=== PATIENT | female | born 1965 | race Caucasian/White ===

== ENCOUNTER 2018-10-19 05:38 | Day surgery (SDC) | payer OTHER ==
[~2018-10-19] VITALS: Ht 160 cm; Wt 76.2 kg
[~2018-10-19 05:38] MED LIST: DEXILANT60 MG ORAL
[2018-10-19 06:35] VITALS: BP 104/54
--- NOTE | 2018-10-19 06:54 | Anethesia Preoperative Eval ---
Anesthesia Pre-op PMH/ROS General Date of Evaluation: Oct 19, 2018 Time of Evaluation: 06:45 Anesthesiologist: Piedad Tarango CRNA ASA Score: ASA 2 Mallampati Score Class I : Soft palate, uvula, fauces, pillars visible Class II: Soft palate, uvula, fauces visible Class III: Soft palate, base of uvula visible Class IV: Only hard plate visible Mallampati Classification: Class II Surgeon: Caty Diagnosis: GERD Surgical Procedure: EGD Diagnostic/colon screening Anesthesia History: none Family History: no anesthesia problems Allergies: Coded Allergies: No Known Allergies (Unverified , 03/22/13) Medications: see eMAR Patient NPO?: Yes Past Medical History Cardiovascular: Denies: HTN, CAD, MS, valve dz, arrhythmia, other Pulmonary: Denies: asthma, COPD, ALLY, other Gastrointestinal/Genitourinary: Reports: GERD; Denies: CRI, ESRD, other Neurologic/Psychiatric: Denies: dementia, CVA, depression/anxiety, TIA, other Endocrine: Denies: DM, hypothyroidism, steroids, other HEENT: Denies: cataract (L), cataract (R), glaucoma, [place] (L[place] (R), other Hematology/Immune: Reports: anemia; Denies: DVT, bleeding disorder, other Musculoskeletal/Integumentary: Reports: OA, other - Cervical neck pain; RIGHT knee pain; Denies: RA, DJD, DDD, edema PMH Narrative: as noted above PSxH Narrative: Hypsterectomy, appendectomy Anesthesia Pre-op Phys. Exam Physician Exam Last Vital Signs Date Time Temp Pulse Resp B/P (MAP) Pulse Ox O2 Delivery O2 Flow Rate FiO2 10/19/18 06:41 Room Air 10/19/18 06:35 97.7 65 18 104/54 97 Constitutional: NAD Neurologic: CN 2-12 intact Cardiovascular: RRR Respiratory: CTA Gastrointestinal: S/NT/ND Airway Exam Mallampati Score: Class II Neck: (+) neck pain/ limited ROM TMD: > 3 FB ROM: full Teeth: intact Dentures: no upper, no lower Anesthesia Pre-op A/P Risk Assessment & Plan Assessment: ASA 2, OK to proceed Plan: MAC Status Change Before Surgery: No Pre-Antibiotics Given Within 1 Hr of Incision: Piedad Rangel CRNA Oct 19, 2018 06:54
--- NOTE | 2018-10-19 06:56 | Immediate Post-Op Evaluation ---
Immediate Post-Op Evalulation Immediate Post-Op Evalulation Procedure: EGD and colonoscopy Date of Evaluation: Oct 19, 2018 Time of Evaluation: 07:32 IV Fluids: 0.9 NS 500 ml Blood Pressure Systolic: 122 Blood Pressure Diastolic: 62 Pulse Rate: 60 Respiratory Rate: 22 O2 Sat by Pulse Oximetry: 100 Temperature (Fahrenheit): 97.0 Pain Score (1-10): 0 Nausea: No Vomiting: No Complications none Patient Status: awake, reacts Hydration Status: adequate Given Within 1 Hr of Incision: Piedad Rangel CRNA Oct 19, 2018 06:56
--- NOTE | 2018-10-19 06:57 | Pre-Procedure Note/Attestation ---
Pre-Procedure Note/Attestation Complete Prior to Procedure Planned Procedure: not applicable Procedure Narrative: esophagogastroduodenoscopy and colonoscopy Indications for Procedure Pre-Operative Diagnosis: colon polyps, GERD Attestation I attest that I discussed the nature of the procedure; its benefits; risks and complications; and alternatives (and the risks and benefits of such alternatives ), prior to the procedure, with the patient (or the patient's legal home furnishings sales representative). I attest that, if there was a reasonable possibility of needing a blood transfusion, the patient (or the patient's legal home furnishings sales representative) was given the [facility] standardized written summary, pursuant to the Gustavo Marjan Blood Safety Act ([place] Health and Safety Code # 1645, as amended). I attest that I re-evaluated the patient just prior to the surgery and that there has been no change in the patient's H&P, except as documented below: Qamar Byrne MD Oct 19, 2018 06:57
--- NOTE | 2018-10-19 06:58 | Short Stay Surgery H&P ---
History of Present Illness History of Present Illness Chief Complaint GERD, screening colon, h/o colon polyps HPI Funmi Gutierrez is a 53 year old female who was admitted on for Gerd, Colon Screening Patient History Allergies: Coded Allergies: No Known Allergies (Unverified , 03/22/13) PAST MEDICAL HISTORY: (1) Rectal polyp (2) Anemia Medication History Scheduled Dexlansoprazole (Dexilant), 60 MG ORAL DAILY, (Reported) Review of Systems Cardiovascular: Reports: no symptoms Respiratory: Reports: no symptoms Skeletal: Reports: no symptoms Gastrointestinal: Reports: gastro esophageal reflux disease Genitourinary: Reports: no symptoms Neurologic: Reports: no symptoms Endocrine: Reports: no symptoms Hematologic: Reports: anemia Physical Exam Vital Signs Last Vital Signs Date Time Temp Pulse Resp B/P (MAP) Pulse Ox O2 Delivery O2 Flow Rate FiO2 10/19/18 06:41 Room Air 10/19/18 06:35 97.7 65 18 104/54 97 Skin: normal HENT: normal Heart: normal Lungs: normal Abdomen: normal Extremities: normal Plan Plan of Care esophagogastroduodenoscopy and colonoscopy Attestation Are the patient's medical conditions optimized for surgery? Attestation Response: yes Qamar Byrne MD Oct 19, 2018 06:58
[2018-10-19] MEDS ORDERED: Lidocaine 1% MPF 10mg/ml 5ml ONE (07:00)
[2018-10-19] MEDS ORDERED: Propofol 200mg/20ml IV ONE (07:00)
--- NOTE | 2018-10-19 07:30 | Endoscopy Procedure Note ---
Endoscopy Procedure Note General Indication for Procedure: colon polyps, GERD Procedures Performed: EGD, colonoscopy Operative Findings/Diagnosis: gastritis, hemorrhoids Specimen: yes Pt Tolerated Procedure Well: Yes Estimated Blood Loss: none Anesthesia Anesthesiologist: melissa Anesthesia: MAC Inserted Devices Implant(s) used?: No Quality Quality of Bowel Preparation: Excellent Did scope reach the cecum?: Yes Was there any complications?: No GI Core Measures 50 yrs or older w/o bx or poly: No 10yrs. F/U not recommended: Yes If not recommended, why?: Above average risk 10 yrs. F/U needed: Yes 18 years or older w/prev. colo: Yes <3yrs. since last colonoscopy: No Qamar Byrne MD Oct 19, 2018 07:30
[2018-10-19 07:32] VITALS: BP 122/62
[2018-10-19 07:37] VITALS: BP 118/71
[2018-10-19 07:42] VITALS: BP 114/69
[2018-10-19 07:47] VITALS: BP 115/69
--- NOTE | 2018-10-19 07:56 | 48 Hour Post Anesthesia Eval ---
Post Anesthesia Evaluation Procedure: EGD and colonoscopy Date of Evaluation: Oct 19, 2018 Time of Evaluation: 07:55 Blood Pressure Systolic: 115 0: 69 Pulse Rate: 56 Respiratory Rate: 18 Temperature (Fahrenheit): 97.0 O2 Sat by Pulse Oximetry: 100 Airway: patent Nausea: No Vomiting: No Pain Intensity: 0 Hydration Status: adequate Cardiopulmonary Status: stable Mental Status/LOC: patient returned to baseline Follow-up Care/Observations: per GI Post-Anesthesia Complications: none Follow-up care needed: ready to discharge Piedad Tarango CRNA Oct 19, 2018 07:56
[2018-10-19 08:20] VITALS: BP 119/84
--- NOTE | 2018-10-19 16:15 | Procedure Note ---
DATE OF PROCEDURE: 10/19/2018 SURGEON: Qamar Byrne M.D. ANESTHESIOLOGIST: Martha TOWNSEND. REFERRING PHYSICIAN: Bobby Nesbitt M.D. PROCEDURE: Upper endoscopy with biopsy and colonoscopy. ANESTHESIA: Per Martha TOWNSEND. INSTRUMENT: Olympus adult flexible upper endoscope and colonoscope. INDICATION: History of colonic polyp, chronic GERD. The procedure, risks, benefits, and possible consequences, including hemorrhage, aspiration, perforation and infection, and alternative treatments, were explained to the patient/legal guardian by Dr. Qamar Byrne and the patient/legal guardian understood and accepted these risks. DESCRIPTION OF PROCEDURE: After informed consent was obtained and the patient was adequately sedated, Olympus upper endoscope was advanced from the mouth into the second portion of duodenum and retroflexion was performed in the stomach. The patient had few shallow erosions in the stomach. Random biopsy from antrum and body was obtained to rule out H. pylori infection. The rest of the upper endoscopic examination grossly looked within normal limit. At this time, the upper endoscope was retrieved. The patient was turned over for colonoscopy. First, rectal exam was performed which was positive for internal hemorrhoids. Then, the scope was advanced from rectum into the cecum and then subsequently to terminal ileum. Quality of prep was very good. The patient had normal colonoscopy examination without any pathology. Retroflexion in the rectum showed evidence of medium-sized nonbleeding internal hemorrhoids. The patient tolerated the procedure very well without any complication. SUMMARY OF FINDINGS: 1. Gastric erosions. 2. Gastritis, status post biopsy. 3. Normal colonoscopy examination. 4. Internal hemorrhoids. RECOMMENDATIONS: Follow up biopsy results and treat accordingly. I would like to thank Dr. Bobby Nesbitt for this kind referral. Qamar Byrne M.D. DR: Dulce Maria JOB#: [id number] CC: Bobby Nesbitt M.D.
== END 2018-10-19 08:45 | disposition home or self-care (01) ==
LOC: GAS 05:38
DX: K21.9 Gastro-esophageal reflux disease without esophagitis (principal); K25.9 Gastric ulcer, unspecified as acute or chronic, without hemorrhage or perforation; K29.50 Unspecified chronic gastritis without bleeding; Z86.010 Personal history of colon polyps; K64.8 Other hemorrhoids; D64.9 Anemia, unspecified; M19.90 Unspecified osteoarthritis, unspecified site; Z90.710 Acquired absence of both cervix and uterus; Z90.49 Acquired absence of other specified parts of digestive tract
CPT/HCPCS: 43239; 45378; J2704; 94003; 94150